=== PATIENT | female | born 1930 | race Caucasian/White ===

== ENCOUNTER 2018-10-18 16:08 | Outpatient (CLI) | payer MEDICARE | END 2018-10-18 16:09 | disposition home or self-care (01) | LOC: C.RADIC 16:08 | DX: J44.9 Chronic obstructive pulmonary disease, unspecified (principal) ==

== ENCOUNTER 2018-10-29 13:32 | Outpatient (CLI) | payer MEDICARE | END 2018-10-29 13:33 | disposition home or self-care (01) | LOC: C.USIC 13:32 ==

== ENCOUNTER 2018-11-07 15:49 | Emergency (ER) | payer MEDICARE ==
[2018-11-07 16:00] VITALS: BP 169/83; PULSE 95; RESP 18; TEMP 97.8; O2SAT 97
--- NOTE | 2018-11-07 16:32 | C.PDOC ---
History Of Present Illness 88 y/o female with a PMHx of cystitis presents to the ED for evaluation of lower leg edema. Patient reports that 3 days ago she saw Dr. Perez, who started patient on Macrobid BID. She reports taking 3 doses and developing swelling to her feet and ankles. Patient also complains of loose, sometimes uncontrollable bowel movements. Patient called her PMD Dr. Santo, who referred patient to the ED for further eval. Otherwise she has no abdominal discomfort, nausea, vomiting, SOB, difficulty breathing, or chest pain. Of note, patient was attempting to schedule outpatient CT Abdomen/Pelvis for further eval of a known renal cyst. Time Seen by Provider: 11/07/18 16:03 Chief Complaint (Nursing): Lower Extremity Problem/Injury History Per: Patient History/Exam Limitations: no limitations Onset/Duration Of Symptoms: Days Current Symptoms Are (Timing): Still Present Past Medical History Reviewed: Historical Data, Nursing Documentation, Vital Signs Vital Signs: Last Vital Signs Temp 97.8 F 11/07/18 15:53 Pulse 95 H 11/07/18 15:53 Resp 18 11/07/18 15:53 BP 169/83 H 11/07/18 15:53 Pulse Ox 97 11/07/18 15:53 - Medical History PMH: GERD, HTN, Hypercholesterolemia Denies: Chronic Kidney Disease Surgical History: Appendectomy, Cholecystectomy - [facility] Procedures INJECT/INFUSE NEC (12/16/13) Family History: States: Unknown Family Hx - Social History Hx Alcohol Use: No Hx Substance Use: No Review Of Systems Constitutional: Negative for: Fever, Chills Eyes: Negative for: Vision Change Cardiovascular: Negative for: Chest Pain Respiratory: Negative for: Shortness of Breath, SOB with Excertion Gastrointestinal: Positive for: Diarrhea. Negative for: Nausea, Vomiting, Abdominal Pain Musculoskeletal: Positive for: Other (Lower leg edema) Skin: Negative for: Rash Neurological: Negative for: Weakness, Numbness Physical Exam - Physical Exam Appears: Non-toxic, No Acute Distress Skin: Normal Color, Warm, Dry Head: Atraumatic, Normacephalic Eye(s): bilateral: Normal Inspection, PERRL, EOMI Oral Mucosa: Moist Neck: Normal ROM Chest: Symmetrical, No Deformity Cardiovascular: Rhythm Regular, No Murmur Respiratory: Normal Breath Sounds, No Rales, No Rhonchi, No Wheezing Gastrointestinal/Abdominal: Soft, No Tenderness, No Distention Back: No CVA Tenderness Extremity: Normal ROM, No Calf Tenderness, No Deformity, Swelling (1+ mild pitting edema) Pulses: Left Dorsalis Pedis: Normal, Right Dorsalis Pedis: Normal Neurological/Psych: Oriented x3, Normal Speech, Normal Cranial Nerves Gait: Steady ED Course And Treatment - Laboratory Results Result Diagrams: 11/07/18 16:44 11/07/18 16:44 Lab Interpretation: No Acute Changes O2 Sat by Pulse Oximetry: 97 (RA) Pulse Ox Interpretation: Normal Progress Note: Labs ordered and reviewed. Reevaluation Time: 17:26 Reassessment Condition: Unchanged (Patient remains comfortable) Disposition Counseled Patient/Family Regarding: Studies Performed, Diagnosis, Need For Followup - Disposition Referrals: Neo Santo MD [Staff Provider] - Arleth Perez MD [Medical Doctor] - Disposition: HOME/ ROUTINE Disposition Time: 17:26 Condition: STABLE Instructions: Swelling Forms: [facility] (Lao) - Clinical Impression Clinical Impression: Pedal edema - Scribe Statement The provider has reviewed the documentation as recorded by the Ana Deluca Provider Attestation: All medical record entries made by the Britibe were at my direction and personally dictated by me. I have reviewed the chart and agree that the record accurately reflects my personal performance of the history, physical exam, medical decision making, and the department course for this patient. I have also personally directed, reviewed, and agree with the discharge instructions and di sposition.
[2018-11-07 16:48] LABS: BASO # 0.1 K/uL (0.0-0.2); BASO % 1.1 % (0.0-2.0); EOS # 0.2 K/uL (0.0-0.7); EOS % 4.1 % (0.0-4.0); LYMPH # 1.5 K/uL (1.0-4.3); MEAN CELL VOLUME 90.3 fL (81.0-99.0); MEAN CORPUSCULAR HEMOGLOBIN 29.9 pg (27.0-31.0); MEAN CORPUSCULAR HGB CONC 33.1 g/dL (33.0-37.0); MEAN PLATELET VOLUME 8.2 fL (7.2-11.7); MONO # 0.4 K/uL (0.0-0.8); MONO % 8.3 % (0.0-10.0); NEUT # 2.9 K/uL (1.8-7.0); NEUT % 57.5 % (50.0-75.0); RBC 4.34 Mil/uL (3.80-5.20); RED CELL DISTRIBUTION WIDTH 14.8 % (11.5-14.5)
[2018-11-07 16:53] LABS: SQUAMOUS EPITHIAL < 1 /hpf (0-5); URINE BACTERIA RARE (<OCC); URINE BILIRUBIN NEGATIVE (NEGATIVE); URINE BLOOD NEGATIVE (NEGATIVE); URINE CLARITY Clear (Clear); URINE COLOR Yellow (YELLOW); URINE GLUCOSE (UA) NORMAL (Normal); URINE LEUKOCYTE ESTERASE NEG Leu/uL (Negative); URINE PROTEIN NEGATIVE (NEGATIVE); URINE UROBILINOGEN NORMAL mg/dL (0.2-1.0)
[2018-11-07 16:59] LABS: ALB/GLOB RATIO 1.5 (1.0-2.1); ALBUMIN 4.7 g/dL (3.5-5.0); ALT/SGPT 20 U/L (9-52); AST/SGOT 32 U/L (14-36); BLOOD UREA NITROGEN 22 mg/dL (7-17); GFR NON-AFRICAN AMERICAN > 60
[2018-11-07 17:07] LABS: B-TYPE NATRIURETIC PEPTIDE 312 pg/mL (0-900)
== END 2018-11-07 17:50 | disposition home or self-care (01) ==
LOC: C.ER 15:49
DX: R60.0 Localized edema (principal); E78.00 Pure hypercholesterolemia, unspecified; I10 Essential (primary) hypertension

== ENCOUNTER 2018-11-14 15:03 | Emergency (ER) | payer MEDICARE ==
[2018-11-14 15:18] VITALS: O2SAT 98
--- NOTE | 2018-11-14 16:33 | C.PDOC ---
History Of Present Illness 88 year old female presents to the ED complaining of bilateral leg swelling and pain for the last several days. She was seen today by Dr. Santo who sent her to the ED for a Venous Duplex to rule out DVT. Reports she was on diuretics in the past, but not currently. Otherwise, patient denies any complaints. Prior records reviewed. Patient was here last week to evaluate leg edema that came on after she was started on Macrobid. Patient was instructed to stop Macrobid and was discharged home. The swelling improved after she stopped taking Macrobid but it returned again 2 days ago. Time Seen by Provider: 11/14/18 15:58 Chief Complaint (Nursing): Lower Extremity Problem/Injury History Per: Patient History/Exam Limitations: no limitations Onset/Duration Of Symptoms: Hrs Current Symptoms Are (Timing): Still Present Additional History Per: Prior Records Past Medical History Reviewed: Historical Data, Nursing Documentation, Vital Signs Vital Signs: Last Vital Signs Temp 97.8 F 11/14/18 15:13 Pulse 86 11/14/18 15:13 Resp 20 11/14/18 15:13 BP 151/78 H 11/14/18 15:13 Pulse Ox 98 11/14/18 15:13 - Medical History PMH: GERD, HTN, Hypercholesterolemia Denies: Chronic Kidney Disease Surgical History: Appendectomy, Cholecystectomy - [facility] Procedures INJECT/INFUSE NEC (12/16/13) Family History: States: No Known Family Hx - Social History Hx Alcohol Use: No Hx Substance Use: No - Immunization History Hx Tetanus Toxoid Vaccination: No Hx Influenza Vaccination: No Hx Pneumococcal Vaccination: No Review Of Systems Constitutional: Negative for: Fever, Chills Cardiovascular: Negative for: Chest Pain Respiratory: Negative for: Shortness of Breath Gastrointestinal: Negative for: Nausea, Vomiting, Abdominal Pain, Diarrhea Musculoskeletal: Positive for: Other (B/L leg swelling ). Negative for: Neck Pain, Back Pain Skin: Negative for: Rash Neurological: Negative for: Headache Physical Exam - Physical Exam Appears: Non-toxic, No Acute Distress Skin: Warm, Dry Head: Normacephalic Eye(s): bilateral: PERRL, EOMI Nose: Normal Oral Mucosa: Moist Neck: Supple Chest: Symmetrical Cardiovascular: Rhythm Regular Respiratory: Normal Breath Sounds, No Rales, No Rhonchi, No Wheezing Gastrointestinal/Abdominal: Soft, No Tenderness Extremity: Calf Tenderness (B/L ), Swelling (B/L leg swelling ) Pulses: Left Dorsalis Pedis: Normal, Right Dorsalis Pedis: Normal Neurological/Psych: Oriented x3, Normal Speech ED Course And Treatment - Laboratory Results Result Diagrams: 11/14/18 16:40 11/14/18 16:40 Lab Interpretation: No Acute Changes O2 Sat by Pulse Oximetry: 98 (RA) Pulse Ox Interpretation: Normal - Other Rad Venous doppler bilateral lower extremities X-Ray: Read By Radiologist Interpretation: No evidence for DVT Reevaluation Time: 17:15 Reassessment Condition: Unchanged - Physician Consult Information Time Consulting Physician Contacted: 17:15 Physician Contacted: Neo Santo Outcome Of Conversation: Patient to be discharged home and he will follow up in the office. Medical Decision Making Medical Decision Making: Plan - Bloodwork - Venous Duplex Scan B/L lower legs Disposition Counseled Patient/Family Regarding: Studies Performed, Diagnosis, Need For Followup - Disposition Disposition: HOME/ ROUTINE Disposition Time: 17:16 Condition: STABLE Instructions: Dependent Edema (DC) Forms: [facility] (South African) - Clinical Impression Clinical Impression: Pedal edema, Venous insufficiency (chronic) (peripheral) - Scribe Statement The provider has reviewed the documentation as recorded by the Scribe Jaz Fonseca All medical record entries made by the Scribe were at my direction and personally dictated by me. I have reviewed the chart and agree that the record accurately reflects my personal performance of the history, physical exam, medical decision making, and the department course for this patient. I have also personally directed, reviewed, and agree with the discharge instructions and disposition.
[2018-11-14 16:47] LABS: BASO # 0.1 K/uL (0.0-0.2); BASO % 1.4 % (0.0-2.0); EOS # 0.2 K/uL (0.0-0.7); EOS % 4.1 % (0.0-4.0); HEMOGLOBIN 12.8 g/dL (11.0-16.0); LYMPH # 1.4 K/uL (1.0-4.3); LYMPH % 31.8 % (20.0-40.0); MEAN CELL VOLUME 90.7 fL (81.0-99.0); MEAN CORPUSCULAR HGB CONC 33.1 g/dL (33.0-37.0); MONO # 0.4 K/uL (0.0-0.8); MONO % 8.9 % (0.0-10.0); NEUT # 2.3 K/uL (1.8-7.0); NEUT % 53.8 % (50.0-75.0); RBC 4.25 Mil/uL (3.80-5.20); RED CELL DISTRIBUTION WIDTH 14.8 % (11.5-14.5); WHITE BLOOD COUNT 4.3 K/uL (4.8-10.8)
[2018-11-14 17:11] LABS: B-TYPE NATRIURETIC PEPTIDE 336 pg/mL (0-900)
[2018-11-14 17:15] LABS: ALB/GLOB RATIO 1.5 (1.0-2.1); ALBUMIN 4.3 g/dL (3.5-5.0); ALT/SGPT 16 U/L (9-52); AST/SGOT 31 U/L (14-36); BLOOD UREA NITROGEN 16 mg/dL (7-17); CALCIUM 9.5 mg/dl (8.6-10.4); GFR NON-AFRICAN AMERICAN > 60
[2018-11-14 17:48] VITALS: BP 149/78; PULSE 85; RESP 18; TEMP 98.2
--- NOTE | 2018-11-15 12:51 | VASCLAB ---
Date of service: 11/14/2018 PROCEDURE: Lower Extremity Venous Duplex Exam. HISTORY: leg swelling and pain PRIORS: None. TECHNIQUE: Bilateral common femoral, femoral, popliteal and posterior tibial, peroneal and great saphenous veins were evaluated. Flow was assessed with color Doppler, compressibility, assessment of phasic flow and augmentation response. Report prepared by Rangel Dsouza, FAIVAN, RVT FINDINGS: RIGHT: 1. Common Femoral Vein: 1.1. Compressibility - Fully compressible: Thrombus - None : Flow - Phasic: Augmentation -Normal: Reflux - None. 2. Femoral Vein: 2.1. Compressibility - Fully compressible: Thrombus - None : Flow - Phasic: Augmentation -Normal: Reflux - None. 3. Popliteal Vein: 3.1. Compressibility - Fully compressible: Thrombus - None : Flow - Phasic: Augmentation -Normal: Reflux - Severe >4.90s 4. Posterior Tibial Vein: 4.1. Compressibility - Fully compressible: Thrombus - None: Flow - Phasic: Augmentation -Normal: Reflux - None. 5. Peroneal Vein: 5.1. Compressibility - Fully compressible: Thrombus - None: Flow - Phasic: Augmentation -Normal: Reflux - None. 6. Great Saphenous Vein: 6.1. Compressibility - : Thrombus - : Flow - : Augmentation - : Reflux - . LEFT: 1. Common Femoral Vein: 1.1. Compressibility - Fully compressible: Thrombus - None: Flow - Phasic: Augmentation -Normal: Reflux - None. 2. Femoral Vein: 2.1. Compressibility - Fully compressible: Thrombus - None: Flow - Phasic: Augmentation -Normal: Reflux - None. 3. Popliteal Vein: 3.1. Compressibility - Fully compressible: Thrombus - None : Flow - Phasic: Augmentation -Normal: Reflux - None. 4. Posterior Tibial Vein: 4.1. Compressibility - Fully compressible: Thrombus - None: Flow - Phasic: Augmentation -Normal: Reflux - None. 5. Peroneal Vein: 5.1. Compressibility - Fully compressible: Thrombus - None: Flow - Phasic: Augmentation -Normal: Reflux - None. 6. Great Saphenous Vein: 6.1. Compressibility - : Thrombus - : Flow - : Augmentation - : Reflux - . OTHER FINDINGS: Bilateral greater saphenous veins previously removed. IMPRESSION: Right: No evidence of deep or superficial vein thrombosis of the right lower extremity. Severe valvular incompetence noted of the right popliteal vein. Left: No evidence of deep or superficial vein thrombosis of the left lower extremity. Normal valve function noted of the left side.
== END 2018-11-14 17:10 | disposition home or self-care (01) ==
LOC: C.ER 15:03
DX: I87.2 Venous insufficiency (chronic) (peripheral) (principal); R60.0 Localized edema

== ENCOUNTER 2018-11-15 13:11 | Outpatient (CLI) | payer MEDICARE | END 2018-11-15 13:12 | disposition home or self-care (01) | LOC: C.CTH 13:11 | DX: N28.1 Cyst of kidney, acquired (principal) ==